=== PATIENT | female | born 1950 | race Caucasian/White ===

== ENCOUNTER 2020-10-21 09:27 | Day surgery (SDC) | payer OTHER, BC ==
[2020-10-18 10:35] VITALS: BMI 31.4
[2020-10-21] MEDS ORDERED: PROPOFOL 20 ML ONE ×3 (10:41)
[2020-10-21 11:43] VITALS: TEMP 98.2
[2020-10-21 12:10] VITALS: BP 126/54; PULSE 62
== END 2020-10-21 12:11 | disposition home or self-care (01) ==
LOC: FASU-ENDO 09:27
PROVIDERS: ATTEND Internal Medicine Gastroenterology
PROC: 0DJD8ZZ Inspection of Lower Intestinal Tract, Via Natural or Artificial Opening Endoscopic (ICD-10-PCS; principal; 2020-10-21 11:18)
DX: Z12.11 Encounter for screening for malignant neoplasm of colon (principal); Z86.010 Personal history of colon polyps; K57.30 Diverticulosis of large intestine without perforation or abscess without bleeding; K64.4 Residual hemorrhoidal skin tags